=== PATIENT | male | born 1950 | race Caucasian/White ===

== ENCOUNTER 2023-06-04 14:51 | Observation (INO) ==
[2023-06-04] MEDS ORDERED: ONDANSETRON 4 MG/2 ML VIAL ONE (15:36)
[2023-06-04] MEDS ORDERED: PROPOFOL 200 MG/20 ML VIAL IV ONE (15:36)
[2023-06-04] MEDS ORDERED: fentaNYL 100 MCG/2 ML VIAL IV ONE (15:36)
[2023-06-04 15:48] LABS: Basophils # (Auto) 0.03 K/mcL (0.00-0.30); Basophils % (Auto) 0.4 % (0.0-2.0); Eosinophils # (Auto) 0.24 K/mcL (0.00-0.70); Eosinophils % (Auto) 2.9 % (0.0-7.0); Hematocrit 39.9 % (40.1-51.0); Hemoglobin 13.1 g/dL (13.7-17.5); Lymphocytes # (Auto) 2.39 K/mcL (1.50-4.80); Lymphocytes % (Auto) 29.1 % (15.5-49.0); Mean Cell Volume 90.7 fL (80.0-100.0); Mean Corpuscular HGB Conc 32.8 g/dL (31.0-36.0); Mean Platelet Volume 10.2 fL (8.8-12.5); Monocytes # (Auto) 0.64 K/mcL (0.10-0.90); Monocytes % (Auto) 7.8 % (1.0-12.0); Neutrophils % (Auto) 59.6 % (38.0-78.0); Platelet Count 391 K/mcL (140-440); Red Cell Distribution Width 12.5 % (11.5-14.5); WBC 8.2 K/mcL (4.5-11.0)
[2023-06-04] MEDS ORDERED: morphine 4 MG/ML VIAL IV ONE (15:54)
[2023-06-04 16:00] LABS: ALT/SGPT 14 U/L (<40); AST/SGOT 21 U/L (<40); Albumin 4.3 gm/dL (3.2-5.2); Albumin/Globulin Ratio 1.8 (1.0-2.3); Alkaline Phosphatase 94 U/L (39-117); Bilirubin,Total 0.5 mg/dL (0.1-1.0); Blood Urea Nitrogen 18 mg/dL (8-23); Calcium 9.1 mg/dL (8.6-10.4); Carbon Dioxide 25 mmol/L (22-30); Chloride 106 mmol/L (96-108); Globulin 2.4 gm/dL (2.2-3.7); Glomerular Filtration Rate 60; Glucose 99 mg/dL (70-105)
[2023-06-04] MEDS ORDERED: LIDOCAINE 2% URO-JET 10 ML JEL.PF.APP UR ONE (16:00)
[2023-06-04] MEDS ORDERED: IOVERSOL 20 ML VIAL IJ ONE (16:00)
[2023-06-04] MEDS ORDERED: ROCURONIUM 10 MG/ML ML IV ONE (16:06)
[2023-06-04] MEDS ORDERED: ceFAZolin 2 GM in DEXTROSE 5% IN WATER 50 ML IV SCH (16:15)
[2023-06-04] MEDS ORDERED: ceFAZolin 1 GM VIAL ONE (16:26)
[2023-06-04] MEDS ORDERED: NALOXONE HCL 0.4 MG/ML VIAL IV PRN (16:54)
[2023-06-04] MEDS ORDERED: ONDANSETRON 4 MG/2 ML VIAL IV PRN ×2 (16:54→17:19)
[2023-06-04] MEDS ORDERED: IPRATROPIUM/ALBUTEROL 3 ML AMPUL.NEB NEB PRN (16:54)
[2023-06-04] MEDS ORDERED: FLUMAZENIL 0.1 MG/ML ML IV PRN (16:54)
[2023-06-04 16:55] LABS: INR 1.1 (0.9-1.1); Prothrombin Time 14.6 sec (11.9-14.5)
[2023-06-04] MEDS ORDERED: LACTATED RINGERS 1,000 ML IV SCH (17:00)
[2023-06-04] MEDS ORDERED: SUGAMMADEX SODIUM 200 MG/2 ML VIAL IV ONE ×2 (17:08→17:25)
[2023-06-04] MEDS ORDERED: HYDROcodone/APAP 5/325MG TABLET PO PRN (17:19)
[2023-06-04] MEDS: fentaNYL 100 MCG/2 ML VIAL IV PRN ×2 (17:35→17:43)
[2023-06-04] MEDS: morphine 2 MG/ML VIAL IV PRN ×4 (20:00→23:58)
[2023-06-04] MEDS: 0.9 % SODIUM CHLORIDE 10 ML SYRINGE IV SCH (21:54)
[2023-06-05 00:06] LABS: Appearance,Urine Cloudy (Clear); Bacteria,Urine 0 /hpf (0); Bilirubin,Urine Negative (Negative); Color,Urine Red; Culture Indicated,Urine No; Glucose,Urine (UA) Negative (Negative); Ketones,Urine Trace mg/dL (Negative); Leukocyte Esterase,Urine Trace /uL (Negative); Nitrate,Urine Negative (Negative); Protein,Urine >=300 mg/dL (Negative); Specific Gravity,Urine 1.025 (1.000-1.035); Urine Blood 3+(Large) ery/mcL (Negative); Urine RBC > 182 /hpf (0-1); Urine Squamous Epithelial Cell 0 /hpf (0-4); Urine WBC 0 /hpf (0-4); Urobilinogen,Urine Normal
[2023-06-05] MEDS: morphine 2 MG/ML VIAL IV PRN ×8 (01:00→20:38)
[2023-06-05] MEDS: 0.9 % SODIUM CHLORIDE 10 ML SYRINGE IV SCH ×3 (05:56→22:24)
[2023-06-05] MEDS ORDERED: ZOLPIDEM 5 MG TABLET PO PRN (07:46)
[2023-06-05] MEDS ORDERED: LORazepam 1 MG TABLET PO PRN (07:49)
[2023-06-05] MEDS: amLODIPine 5 MG TABLET PO SCH (08:34)
[2023-06-05] MEDS: METOPROLOL SUCCINATE 50 MG TAB.XL.24H PO SCH (08:35)
[2023-06-05] MEDS: HYDROcodone/APAP 10/325MG TABLET PO PRN ×2 (08:35→15:05)
[2023-06-05] MEDS: MAGNESIUM OXIDE 400 MG TABLET PO SCH (08:35)
[2023-06-05] MEDS: 0.9 % SODIUM CHLORIDE 1,000 ML IV SCH ×2 (08:35→16:21)
[2023-06-05] MEDS ORDERED: SENNOSIDES 8.8 MG/5 ML ML PT SCH (09:00)
[2023-06-05] MEDS: OMEPRAZOLE 20 MG CAPSULE PO SCH (11:32)
[2023-06-05] MEDS ORDERED: POLYETHYLENE GLYCOL 3350 17 GM PACKET PO PRN (19:10)
[2023-06-05] MEDS: PHENAZOPYRIDINE 200 MG TABLET PO PRN (19:17)
[2023-06-05] MEDS: SULFAMETHOXAZOLE/TRIMETHOPRIM 1 TABLET PO SCH (20:38)
[2023-06-05] MEDS ORDERED: TAMSULOSIN 0.4 MG CAPSULE PO SCH (21:00)
[2023-06-05] MEDS ORDERED: SENNOSIDES 1 TABLET PO SCH (21:00)
[2023-06-05] MEDS ORDERED: ATORVASTATIN 40 MG TABLET PO SCH (21:00)
[2023-06-06] MEDS: 0.9 % SODIUM CHLORIDE 10 ML SYRINGE IV SCH (05:45)
[2023-06-06] MEDS: OMEPRAZOLE 20 MG CAPSULE PO SCH (07:25)
[2023-06-06] MEDS ORDERED: LEVOTHYROXINE 75 MCG TABLET PO SCH (07:30)
[2023-06-06] MEDS ORDERED: OMEPRAZOLE 20 MG CAPSULE PO SCH (07:30)
[2023-06-06] MEDS: HYDROcodone/APAP 10/325MG TABLET PO PRN ×2 (08:02→13:21)
[2023-06-06] MEDS: PHENAZOPYRIDINE 200 MG TABLET PO PRN (08:06)
[2023-06-06] MEDS: amLODIPine 5 MG TABLET PO SCH (08:41)
[2023-06-06] MEDS: MAGNESIUM OXIDE 400 MG TABLET PO SCH (08:41)
[2023-06-06] MEDS: METOPROLOL SUCCINATE 50 MG TAB.XL.24H PO SCH (08:42)
[2023-06-06] MEDS: SULFAMETHOXAZOLE/TRIMETHOPRIM 1 TABLET PO SCH (08:42)
[2023-06-06] MEDS ORDERED: CALCIUM CARBONATE 500 MG TAB.CHEW CHEWED PRN (09:44)
[2023-06-06] MEDS: morphine 2 MG/ML VIAL IV PRN (10:03)
[2023-06-16 07:10] LABS: Calculus Weight 50 mg
== END 2023-06-06 13:30 | disposition home or self-care (01) ==
LOC: ED 14:51 → MEDSUR 16:12 → SUR 16:12 → MEDSUR 17:50
PROVIDERS: ADMIT Urology; ATTEND Urology